=== PATIENT | female | born 1945 | race Caucasian/White ===

== ENCOUNTER 2017-07-27 08:42 | Outpatient (CLI) | payer MEDICARE, OTHER ==
--- NOTE | 2017-07-27 12:19 | CT ---
CT ABDOMEN AND PELVIS WITH ORAL AND IV CONTRAST: Date: 07/27/17 HISTORY: Generalized abdominal pain, abnormal small bowel x-ray. FINDINGS: There is a calcified granuloma in the right lung base and in the liver. The patient is post cholecys tectomy. No hepatic mass or abnormal biliary ductal dilatation is seen. The liver demonstrates decre ased attenuation compared to the spleen, consistent with fatty infiltration. The spleen, pancreas, a drenal glands, and right kidney are normal. There is a 7.0 mm cyst in the left kidney. No free air, free fluid, or lymphadenopathy seen in the abdomen or pelvis. The small bowel loops are not abnormally dilated. There is contrast moving from the small bowel loops into the colon. A gifty l appearing appendix is present. No aneurysmal dilatation of the abdominal aorta is seen. There are degenerative changes in the spine. IMPRESSION: 1. Fatty liver. 2. Old granulomatous disease. 3. Left renal cyst. POS: [facility]
[2017-07-27] MEDS ORDERED: Iopamidol 370 76% 100 ML VIAL ONE (14:27)
== END 2017-07-27 08:43 | disposition home or self-care (01) ==
LOC: CT 08:42
PROVIDERS: ATTEND Internal Medicine Gastroenterology
DX: R10.84 Generalized abdominal pain (principal); R93.3 Abnormal findings on diagnostic imaging of other parts of digestive tract; K76.0 Fatty (change of) liver, not elsewhere classified; N28.1 Cyst of kidney, acquired
CPT/HCPCS: 74177

== ENCOUNTER 2020-08-25 06:42 | Outpatient (CLI) | payer MEDICARE, OTHER ==
[2020-08-25 15:38] LABS: Mean Corpuscular HGB CONC 34.4 G/DL (32.0-36.0); Mean Corpuscular Hemoglobin 30.5 PG (27.0-33.0); Mean Corpuscular Volume 88.7 fl (80.0-100.0); Mean Platelet Volume 10.2 fl (7.4-10.4); Platelet Count 226 10x3/uL (130-400); RBC Distribution Width 12.7 % (11.5-14.5); Red Blood Cell (RBC) Count 4.59 10x6/uL (3.90-5.20); White Blood Cell (WBC) Count 8.1 10x3/uL (4.5-11.0)
[2020-08-25 15:45] LABS: Anion Gap 16 mmol/L (10-20); BUN (Urea Nitrogen) 24 mg/dL (9.8-20.1); Calc. Creatinine Clearance 0 mL/min (70-130); Calcium 9.7 mg/dL (7.8-10.44); Carbon Dioxide 25 mmol/L (23-31); Chloride 104 mmol/L (98-107); Estimated GFR-MDRD 43; Glucose 112 mg/dL (83-110); Potassium 4.4 mmol/L (3.5-5.1); Sodium 141 mmol/L (136-145)
[2020-08-25 15:51] LABS: INR-International Normal Ratio 1.1; PTT 28.7 sec (22.0-33.0); Prothrombin Time 11.3 sec (9.5-12.1)
[2020-08-26 10:54] LABS: SARS-CoV-2 MS2 Positive; SARS-CoV-2 N Gene Negative; SARS-CoV-2 S Gene Negative; SARS-CoV-2 by NAA Not Detected (NotDetected); SARS-CoV-2 orf1ab Negative
== END 2020-08-25 06:43 | disposition home or self-care (01) ==
LOC: LABBT 06:42
PROVIDERS: ATTEND Surgery
DX: Z01.818 Encounter for other preprocedural examination (principal); Z20.828 Contact with and (suspected) exposure to other viral communicable diseases; M54.16 Radiculopathy, lumbar region; M48.062 Spinal stenosis, lumbar region with neurogenic claudication
CPT/HCPCS: 80048; 85027; 85610; 85730; 93005; U0003; 87635; 93010

== ENCOUNTER 2020-08-28 06:04 | Inpatient (IN) | payer MEDICARE, OTHER ==
[2020-08-27 11:40] VITALS: BMI 22.0
[2020-08-28] MEDS ORDERED: Thrombin 5000 UNITS/5 ML VIAL ONE ×2 (06:30→08:18)
[2020-08-28] MEDS ORDERED: Famotidine/PF 20 mg/2ml Vial ONE (06:37)
[2020-08-28] MEDS ORDERED: PROPOFOL 200 MG/20 ML VIAL ONE (06:41)
[2020-08-28] MEDS ORDERED: Ondansetron PF 4 MG/2 ML Vial ONE (06:41)
[2020-08-28] MEDS ORDERED: Metoclopramide HCl 10 MG/2 ML VIAL ONE (06:41)
[2020-08-28] MEDS ORDERED: Dexamethasone 20 MG/5 ML VIAL ONE (06:41)
[2020-08-28] MEDS ORDERED: Lidocaine 1% PF 5 ML VIAL ONE (06:41)
[2020-08-28] MEDS ORDERED: Glycopyrrolate 0.2 MG/ML 5 ML SYRINGE ONE (06:41)
[2020-08-28] MEDS ORDERED: PHENYLEPHRINE-NS 100 MCG/ML 10 ML SYRINGE ONE (06:41)
[2020-08-28] MEDS ORDERED: Rocuronium Bromide 10 MG/ML (10ML VIAL) ONE (06:41)
[2020-08-28] MEDS ORDERED: Fentanyl 250 MCG/5 ML VIAL ONE (07:28)
[2020-08-28] MEDS ORDERED: SUGAMMADEX SODIUM 200 MG/2 ML VIAL ONE (09:26)
[2020-08-28] MEDS ORDERED: PACU-Morphine 4MG/ML VIAL SLOW IVP PRN (09:56)
[2020-08-28] MEDS ORDERED: Promethazine HCl 25 MG/ML VIAL IM PRN (09:56)
[2020-08-28] MEDS ORDERED: HYDROmorphone 2 MG/ML VIAL SLOW IVP PRN (09:56)
[2020-08-28] MEDS ORDERED: Ondansetron HCl/PF 4 MG/2 ML Vial IVP PRN (09:56)
[2020-08-28] MEDS ORDERED: Promethazine HCl 25 MG/ML VIAL SLOW IVP PRN (09:56)
[2020-08-28] MEDS ORDERED: Morphine Sulfate 2 MG/ML SYRINGE SLOW IVP PRN (09:56)
[2020-08-28] MEDS ORDERED: Bisacodyl 10 MG SUPP PR PRN (10:22)
[2020-08-28] MEDS ORDERED: Acetaminophen/Codeine 30-300mg Tablet PO PRN (10:22)
[2020-08-28] MEDS ORDERED: Mag-Al 1200 mg/1200 mg/30 ML UDCUP PO PRN (10:22)
[2020-08-28] MEDS ORDERED: Ondansetron PF 4 MG/2 ML Vial IVP PRN (10:22)
[2020-08-28] MEDS ORDERED: Milk Of Magnesia 30 ML UDCUP PO PRN (10:22)
[2020-08-28] MEDS ORDERED: tiZANidine HCl 4 MG TAB PO PRN (10:22)
--- NOTE | 2020-08-28 10:25 | RAD ---
XR Lumbar Spine 2 Or 3 View History: Laminectomy surgery. Localization Comparison: Lumbar spine MRI February 2020 Findings: 2 spot images of the spine were obtained. On the second image there are 3 separate radiopaq ue instruments projecting over the posterior elements of L3, L4 and L5. Impression: On the second image there are 3 separate radiopaque instruments projecting over the L3, L 4 and L5 posterior elements.
[2020-08-28] MEDS ORDERED: Fentanyl 100 MCG/2 ML VIAL ONE ×3 (10:56→13:05)
[2020-08-28] MEDS ORDERED: Promethazine HCl 25 MG/ML VIAL ONE (11:21)
--- NOTE | 2020-08-28 14:57 | OP ---
DATE OF PROCEDURE: 08/28/2020 MEDICAL AND HEALTH SERVICES MANAGER: Winnie Perez PA-C. LOCATION: OR 5. PREPROCEDURE DIAGNOSES: Multilevel lumbar stenosis, neurogenic claudication. POSTPROCEDURE DIAGNOSES: Multilevel lumbar stenosis, neurogenic claudication. PROCEDURES PERFORMED: L2-L3, L3-L4, L4-L5 laminectomies, partial facetectomies, foraminotomies. DESCRIPTION OF PROCEDURE: After informed consent was obtained from the patient, the patient was brought to the OR. Proper patient, pause, and identification were carried out. She was placed under excellent general endotracheal anesthesia and positioned prone on the OR table. All appropriate points were padded. We identified the L2, L3, L4, L5 dorsal spines and lamina. A linear dony was made over this region. This area was sterilely cleansed, prepared, and draped. Proper patient, pause, and identification were carried out. The wound was then opened with a combination of sharp, monopolar, and blunt dissection and the L2, L3, L4, L5 dorsal spines and lamina were exposed. Localization film confirmed our area of interest. We then performed L2, L3, L4, L5 laminectomies, partial facetectomies, and foraminotomies with excellent decompression of common dural tube and nerve roots. Copious irrigation occurred throughout as did maximizing hemostasis. There was no spinal fluid leak. The wound was then closed in anatomic layers following sprinkling of vancomycin powder. The patient emerged from anesthesia. Job ID: [id number]
[2020-08-28] MEDS: HYDROcodone/Acetaminophen 7.5/325 mg Tablet PO PRN ×2 (15:20→21:15)
[2020-08-28] MEDS: Sodium Chloride 0.9% 1,000 ML IV SCH ×2 (15:21→23:30)
[2020-08-28] MEDS: CEFAZOLIN 2 GM in Premix Bag 1 BAG IVPB SCH ×2 (15:22→23:05)
[2020-08-28] MEDS: Morphine 2 MG/ML VIAL SLOW IVP PRN ×2 (15:33→23:20)
[2020-08-28] MEDS: Vit A,C & E/Lutein/Minerals Tablet PO SCH (21:10)
[2020-08-28] MEDS: Calcium Carbonate 600 MG TAB PO SCH (21:10)
[2020-08-29] MEDS: Morphine 2 MG/ML VIAL SLOW IVP PRN ×3 (02:30→08:57)
[2020-08-29] MEDS: Levothyroxine Sodium 50 MCG TAB PO SCH (06:02)
[2020-08-29] MEDS ORDERED: LUTEIN 20 MG PO SCH (09:00)
[2020-08-29] MEDS ORDERED: [UNRECOGNIZED DRUG - OTHER] PO SCH (09:00)
[2020-08-29] MEDS ORDERED: GINKGO BILOBA 120 MG PO SCH (09:00)
[2020-08-29] MEDS ORDERED: CYANOCOBALAMIN PO SCH (09:00)
[2020-08-29] MEDS ORDERED: VIT B6 PO SCH (09:00)
[2020-08-29] MEDS ORDERED: FOLIC AC PO SCH (09:00)
[2020-08-29] MEDS ORDERED: CURCUMIN FS SCH (09:00)
[2020-08-29] MEDS ORDERED: Cyanocobalamin (Vitamin B-12) 1,000 MCG TAB PO SCH (09:00)
[2020-08-29] MEDS ORDERED: [UNRECOGNIZED DRUG - OTHER] PO SCH (09:00)
[2020-08-29] MEDS: Calcium Carbonate 600 MG TAB PO SCH ×2 (09:10→20:36)
[2020-08-29] MEDS: Vit A,C & E/Lutein/Minerals Tablet PO SCH ×2 (09:10→20:36)
[2020-08-29] MEDS: Ascorbic Acid 500 mg Chewable Tablet PO SCH (09:10)
[2020-08-29] MEDS: Magnesium Oxide 400 MG TAB PO SCH (09:10)
[2020-08-29] MEDS: Multivit, Therapeutic 1 TAB PO SCH (09:10)
[2020-08-29] MEDS: Cholecalciferol 1,000 UNITS (25 MCG) TAB PO SCH (09:12)
[2020-08-29] MEDS ORDERED: Ketorolac Tromethamine 30 MG/ML VIAL IVP SCH (10:15)
[2020-08-29] MEDS ORDERED: Diazepam 5 MG TAB PO SCH (10:15)
[2020-08-29] MEDS ORDERED: Dexamethasone 4 mg/ml Vial SLOW IVP SCH (10:30)
--- NOTE | 2020-08-29 12:21 | PRG ---
DATE OF SERVICE: 08/29/2020 SUBJECTIVE: Omero is postoperative day #1 following L2 through L5 laminectomy, partial facetectomy, foraminotomy. She has a significant amount of lumbar incisional pain today. She is not yet mobilized and we will work on that today, but we need to obtain better pain control. We will place an inpatient rehab consultation for her. Job ID: [id number]
[2020-08-29] MEDS: Ketorolac Tromethamine 30 MG/ML VIAL IVP PRN (17:47)
[2020-08-29] MEDS: Sodium Chloride 0.9% 1,000 ML IV SCH (17:51)
[2020-08-29] MEDS: Diazepam 5 MG TAB PO PRN (20:48)
[2020-08-30] MEDS: Ketorolac Tromethamine 30 MG/ML VIAL IVP PRN ×3 (00:13→19:23)
[2020-08-30] MEDS: Sodium Chloride 0.9% 1,000 ML IV SCH ×2 (01:32→14:22)
[2020-08-30] MEDS: HYDROcodone/Acetaminophen 7.5/325 mg Tablet PO PRN ×3 (04:14→19:39)
[2020-08-30] MEDS: Levothyroxine Sodium 50 MCG TAB PO SCH (05:15)
[2020-08-30] MEDS: Diazepam 5 MG TAB PO PRN ×3 (05:16→22:41)
[2020-08-30] MEDS: Ascorbic Acid 500 mg Chewable Tablet PO SCH (08:05)
[2020-08-30] MEDS: Multivit, Therapeutic 1 TAB PO SCH (08:06)
[2020-08-30] MEDS: Cholecalciferol 1,000 UNITS (25 MCG) TAB PO SCH (08:06)
[2020-08-30] MEDS: Calcium Carbonate 600 MG TAB PO SCH ×2 (08:06→20:36)
[2020-08-30] MEDS: Magnesium Oxide 400 MG TAB PO SCH (08:06)
[2020-08-30] MEDS: Vit A,C & E/Lutein/Minerals Tablet PO SCH ×2 (08:06→20:36)
--- NOTE | 2020-08-30 14:15 | PRG ---
DATE OF SERVICE: Ms. Jamil is better than she was yesterday regarding pain control. She is fully intact , but does have an again incisional pain and moderate radiculitis. She will benefit from inpatient rehab. Job ID: [id number]
[2020-08-31] MEDS: HYDROcodone/Acetaminophen 7.5/325 mg Tablet PO PRN ×4 (02:04→19:15)
[2020-08-31] MEDS: Ketorolac Tromethamine 30 MG/ML VIAL IVP PRN ×2 (04:14→11:21)
[2020-08-31] MEDS: Levothyroxine Sodium 50 MCG TAB PO SCH (05:59)
[2020-08-31] MEDS: Sodium Chloride 0.9% 1,000 ML IV SCH ×2 (06:54→16:54)
[2020-08-31] MEDS: Ascorbic Acid 500 mg Chewable Tablet PO SCH (08:38)
[2020-08-31] MEDS: Cholecalciferol 1,000 UNITS (25 MCG) TAB PO SCH (08:38)
[2020-08-31] MEDS: Calcium Carbonate 600 MG TAB PO SCH ×2 (08:38→20:00)
[2020-08-31] MEDS: Magnesium Oxide 400 MG TAB PO SCH (08:38)
[2020-08-31] MEDS: Multivit, Therapeutic 1 TAB PO SCH (08:38)
[2020-08-31] MEDS: Vit A,C & E/Lutein/Minerals Tablet PO SCH ×2 (08:39→20:00)
[2020-08-31] MEDS: Diazepam 5 MG TAB PO PRN (08:58)
--- NOTE | 2020-08-31 11:13 | PRG ---
DATE OF SERVICE: 08/31/2020 Ms. Jamil is postoperative day #3 after undergoing L2 to L5 laminectomies, partial facetectomies, and foraminotomies. She continues to report significant amount of low back pain as well as right greater than left buttock and leg pain. Her pain is overall steadily improving with each day. Overall, she has good strength throughout her bilateral lower extremity myotomes, however, she will benefit from continued therapies and inpatient rehab. She states that she worked with therapies yesterday and ambulated to the hospital room She has also been able to ambulate to the restroom. The patient is stable for discharge to inpatient rehab once approved. Job ID: [id number]
[2020-08-31] MEDS: traMADol HCl 50 MG TAB PO PRN ×2 (14:39→21:33)
[2020-08-31] MEDS: Acetaminophen 325 MG TAB PO PRN ×2 (14:39→21:33)
[2020-09-01] MEDS: HYDROcodone/Acetaminophen 7.5/325 mg Tablet PO PRN ×3 (00:23→21:34)
[2020-09-01] MEDS: traMADol HCl 50 MG TAB PO PRN ×3 (03:56→17:49)
[2020-09-01] MEDS: Acetaminophen 325 MG TAB PO PRN ×3 (03:57→17:48)
[2020-09-01] MEDS: Levothyroxine Sodium 50 MCG TAB PO SCH (05:47)
[2020-09-01] MEDS: Sodium Chloride 0.9% 1,000 ML IV SCH ×2 (09:15→20:58)
[2020-09-01] MEDS: Ascorbic Acid 500 mg Chewable Tablet PO SCH (09:16)
[2020-09-01] MEDS: Calcium Carbonate 600 MG TAB PO SCH ×2 (09:16→20:58)
[2020-09-01] MEDS: Vit A,C & E/Lutein/Minerals Tablet PO SCH ×2 (09:16→20:58)
[2020-09-01] MEDS: Magnesium Oxide 400 MG TAB PO SCH (09:16)
[2020-09-01] MEDS: Multivit, Therapeutic 1 TAB PO SCH (09:16)
[2020-09-01] MEDS: Cholecalciferol 1,000 UNITS (25 MCG) TAB PO SCH (09:16)
--- NOTE | 2020-09-01 13:17 | PRG ---
DATE OF SERVICE: 09/01/2020 Katia Jamil has much better pain control this morning. She is neurologically intact. She has had some vertigo. We are trying to get her to inpatient rehab. She could go as easy as early as today. Job ID: [id number]
[2020-09-01] MEDS: Diazepam 5 MG TAB PO PRN (14:30)
[2020-09-02] MEDS: Acetaminophen 325 MG TAB PO PRN (02:36)
[2020-09-02] MEDS: traMADol HCl 50 MG TAB PO PRN (02:36)
[2020-09-02] MEDS: Levothyroxine Sodium 50 MCG TAB PO SCH (05:15)
[2020-09-02] MEDS: HYDROcodone/Acetaminophen 7.5/325 mg Tablet PO PRN ×3 (05:20→16:12)
[2020-09-02] MEDS: Magnesium Oxide 400 MG TAB PO SCH ×2 (09:02→09:14)
[2020-09-02] MEDS: Vit A,C & E/Lutein/Minerals Tablet PO SCH ×2 (09:02→09:14)
[2020-09-02] MEDS: Ascorbic Acid 500 mg Chewable Tablet PO SCH ×2 (09:03→09:14)
[2020-09-02] MEDS: Calcium Carbonate 600 MG TAB PO SCH ×2 (09:03→09:14)
[2020-09-02] MEDS: Multivit, Therapeutic 1 TAB PO SCH ×2 (09:03→09:14)
[2020-09-02] MEDS: Cholecalciferol 1,000 UNITS (25 MCG) TAB PO SCH ×2 (09:03→09:14)
[2020-09-02] MEDS: Sodium Chloride 0.9% 1,000 ML IV SCH (09:03)
[2020-09-02 11:47] VITALS: TEMP 98.2
[2020-09-02 16:04] VITALS: BP 147/67
== END 2020-09-02 19:00 | DRG 517 ==
LOC: SDC 06:04 → SURG A 10:22 → SDC 08-30 22:29 → SURG A 08-30 22:30
PROVIDERS: ADMIT Surgery; ATTEND Surgery
PROC: 01NB0ZZ Release Lumbar Nerve, Open Approach (ICD-10-PCS; principal; 2020-08-28)
DX: M48.062 Spinal stenosis, lumbar region with neurogenic claudication (principal); M54.16 Radiculopathy, lumbar region; Z20.828 Contact with and (suspected) exposure to other viral communicable diseases; E03.9 Hypothyroidism, unspecified; M19.90 Unspecified osteoarthritis, unspecified site; Z86.73 Personal history of transient ischemic attack (TIA), and cerebral infarction without residual deficits; Z79.82 Long term (current) use of aspirin; Z79.890 Hormone replacement therapy; Z90.710 Acquired absence of both cervix and uterus; Z79.899 Other long term (current) drug therapy
CPT/HCPCS: 72100; J0690; J1100; J1885; J2270; J2405; J2550; J2704; J2765; J3010; J3370; S0028

== ENCOUNTER 2021-08-18 13:56 | Outpatient (CLI) | payer MEDICARE, OTHER | END 2021-08-18 13:57 | disposition home or self-care (01) | LOC: BICULT 13:56 | PROVIDERS: ATTEND Urology | DX: N18.31 Chronic kidney disease, stage 3a (principal); R39.198 Other difficulties with micturition | CPT/HCPCS: 76770 ==

== ENCOUNTER 2023-10-02 14:00 | Outpatient (CLI) | payer MEDICARE, OTHER | END 2023-10-02 14:01 | disposition home or self-care (01) | LOC: BICMAMMO 14:00 | PROVIDERS: ATTEND Internal Medicine | DX: M85.89 Other specified disorders of bone density and structure, multiple sites (principal) | CPT/HCPCS: 77080 ==